=== PATIENT | female | born 1975 | race Caucasian/White ===

== ENCOUNTER 2018-02-05 10:26 | Emergency (ER) | payer OTHER ==
[~2018-02-05] VITALS: Ht 162.6 cm; Wt 62.1 kg
[2018-02-05 10:28] VITALS: Ht 162.6 cm; Wt 62.1 kg
[2018-02-05 11:12] LABS: BASOPHIL % 0.3 % (0-2); PLATELET COUNT 200 x10^3mcL (130-400)
[2018-02-05 11:31] LABS: CALCIUM 8.3 mg/dL (8.5-10.1); CHLORIDE SERUM 102 mmol/L (98-107); CREATININE SERUM 0.8 mg/dL (0.6-1.0); GFR1 > 60 mL/min; GLUCOSE SERUM 94 mg/dL (74-106); POTASSIUM SERUM 3.9 mmol/L (3.5-5.1); SODIUM SERUM 138 mmol/L (136-145)
[2018-02-05 11:35] LABS: ALBUMIN 3.6 g/dL (3.4-5.0); ALKALINE PHOSPHATASE 73 U/L (46-116); ALT/SGPT 17 U/L (14-59); AST/SGOT 16 U/L (15-37); BILIRUBIN TOTAL 0.23 mg/dL (0.20-1.00); LIPASE 126 IU/L (73-393); TOTAL PROTEIN, SERUM 8.1 g/dL (6.4-8.2)
[2018-02-05 13:40] VITALS: BP 126/49
== END 2018-02-05 13:40 | disposition home or self-care (01) ==
LOC: ED 10:26
PROVIDERS: Emergency Medicine
DX: K29.70 Gastritis, unspecified, without bleeding (principal)
CPT/HCPCS: J2270; J2405; Q9967

== ENCOUNTER 2019-11-02 14:30 | Emergency (ER) | payer OTHER ==
[~2019-11-02] VITALS: Ht 167.6 cm; Wt 77.1 kg
[2019-11-02 14:35] VITALS: Ht 167.6 cm; Wt 77.1 kg
[2019-11-02 17:26] LABS: PLATELET COUNT 220 x10^3mcL (130-400); RED CELL DISTRIBUTION WIDTH 14.1 % (11.5-14.5)
[2019-11-02 17:57] LABS: CALCIUM 9.4 mg/dL (8.5-10.1); CARBON DIOXIDE 17.4 mmol/L (21-32); CHLORIDE SERUM 100 mmol/L (98-107); CREATININE SERUM 0.6 mg/dL (0.6-1.0); GFR1 > 60 mL/min; GLUCOSE SERUM 97 mg/dL (74-106); POTASSIUM SERUM 4.5 mmol/L (3.5-5.1); SODIUM SERUM 135 mmol/L (136-145)
[2019-11-02 18:01] LABS: ALBUMIN 3.5 g/dL (3.4-5.0); ALKALINE PHOSPHATASE 82 U/L (46-116); ALT/SGPT 25 U/L (14-59); AST/SGOT 34 U/L (15-37); BILIRUBIN TOTAL 0.2 mg/dL (0.20-1.00); MAGNESIUM 2.1 mg/dL (1.8-2.4)
[2019-11-02 18:04] LABS: TOTAL PROTEIN, SERUM 8.3 g/dL (6.4-8.2)
[2019-11-02 18:31] VITALS: BP 144/71
== END 2019-11-02 18:31 | disposition home or self-care (01) ==
LOC: ED 14:30
PROVIDERS: Emergency Medicine
DX: M79.10 Myalgia, unspecified site (principal); R07.2 Precordial pain; M54.2 Cervicalgia
CPT/HCPCS: J1885